=== PATIENT | male | born 1965 | race Two or more races ===

== ENCOUNTER 2018-12-21 09:28 | Emergency (ER) | payer OTHER ==
[2018-12-21] MEDS ORDERED: DIPHTH,PERTUSS(ACELL),TET 0.5 ML DISP.SYRIN IM ONE ×2 (09:58→10:11)
--- NOTE | 2018-12-21 10:01 | PDOC ---
History of Present Illness - General Chief Complaint: Injury Stated Complaint: LAC RIGHT THUMB Time Seen by Provider: 12/21/18 09:55 History Source: Patient - History of Present Illness Initial Comments: 12/21/18 09:56 Patient is a 53-year-old male who presents to the ER with a right thumb laceration sustained earlier this morning. Patient states he was working with a chop saw when it slipped and cut his right thumb. Patient does not remember the date of his last tetanus shot. Bleeding is controlled prior to arrival in the emergency department. Pt is L hand dominant. Past History - Travel Traveled outside of the country in the last 30 days: No Close contact w/someone who was outside of country & ill: No - Past Medical History Allergies/Adverse Reactions: Allergies Allergy/AdvReac Type Severity Reaction Status Date / Time No Known Allergies Allergy Verified 12/21/18 09:33 Home Medications: Ambulatory Orders NK [No Known Home Medication] 12/21/18 Anemia: Yes COPD: No - Immunization History Immunization Up to Date: No - Suicide/Smoking/Psychosocial Hx Smoking History: Never smoked Hx Alcohol Use: No Drug/Substance Use Hx: No Review of Systems - Review of Systems Able to Perform ROS?: Yes Comments:: 12/21/18 11:02 CONSTITUTIONAL: Absent: fever, chills, diaphoresis, generalized weakness, malaise, loss of appetite HEENT: Absent: rhinorrhea, nasal congestion, throat pain, throat swelling, difficulty swallowing, mouth swelling, ear pain, eye pain, visual Changes CARDIOVASCULAR: Absent: chest pain, loss of consciousness, palpitations, irregular heart rate, peripheral edema RESPIRATORY: Absent: cough, shortness of breath, dyspnea with exertion, orthopnea, wheezing, stridor, hemoptysis GASTROINTESTINAL: Absent: abdominal pain, abdominal distension, nausea, vomiting, diarrhea, constipation, melena, hematochezia GENITOURINARY: Absent: dysuria, frequency, urgency, hesitancy, hematuria, flank pain, genital pain MUSCULOSKELETAL: Absent: myalgia, arthralgia, joint swelling SKIN: Absent: rash, itching, pallor HEMATOLOGIC/IMMUNOLOGIC: Absent: easy bleeding, easy bruising, lymphadenopathy, frequent infections ENDOCRINE: Absent: unexplained weight gain, unexplained weight loss, heat intolerance, cold intolerance NEUROLOGIC: Absent: headache, focal weakness or paresthesias, dizziness, unsteady gait, seizure, mental status changes, bladder or bowel incontinence PSYCHIATRIC: Absent: anxiety, depression, suicidal or homicidal ideation, hallucinations. Is the patient limited Slovenian proficient: No *Physical Exam - Vital Signs Last Vital Signs Temp Pulse Resp BP Pulse Ox 97.8 F 70 16 136/87 100 12/21/18 09:34 12/21/18 09:34 12/21/18 09:34 12/21/18 09:34 12/21/18 09:34 Moderate Sedation - Procedure Monitoring Vital Signs: Procedure Monitoring Vital Signs Temperature 97.8 F 12/21/18 09:34 Pulse Rate 70 12/21/18 09:34 Respiratory Rate 16 12/21/18 09:34 Blood Pressure 136/87 12/21/18 09:34 O2 Sat by Pulse Oximetry (%) 100 12/21/18 09:34 *DC/Admit/Observation/Transfer Diagnosis at time of Disposition: Laceration - Discharge Dispostion Disposition: HOME Condition at time of disposition: Stable Decision to Admit order: No - Referrals Referrals: Angelito Tirado MD [Staff Physician] - - Patient Instructions Printed Discharge Instructions: DI for Laceration Repair -- Finger Additional Instructions: You had your cut fixed today with stitches. Please return in 7 days to have your stitches removed. Your tetanus shot was updated today. Avoid soaking the thumb. Keep it dry when showering. Please keep the area clean and pat dry. You may take Tylenol or Motrin as needed for pain. Return to the emergency department sooner if you have area of redness around the site, purulent drainage, fevers, or have any changes in your symptoms. Has arreglado tu jose francisco hoy con puntos de sutura. Por favor, vuelva en 7 rod para que le quiten los puntos. Tu vacuna contra el ttanos fue actualizada hoy. Evite empapar el pulgar. Mantngalo seco cuando se duche. Por favor, mantenga el dalton limpia y seca. Puede jolynn Tylenol o Motrin segn sea necesario para el dolor. Regrese al departamento de emergencias antes si tiene un dalton de enrojecimiento alrededor del sitio, drenaje purulento, fiebre o si tiene algn cambio en alok sntomas. - Post Discharge Activity Forms/Work/School Notes: Back to Work
[2018-12-21 10:13] VITALS: BP 136/87; PULSE 70; TEMP 97.8; BMI 25.0
== END 2018-12-21 11:18 | disposition home or self-care (01) ==
LOC: JERFT 09:28
PROC: 3E0234Z Introduction of Serum, Toxoid and Vaccine into Muscle, Percutaneous Approach (ICD-10-PCS; principal; 2018-12-21)
PROC: 0HQFXZZ Repair Right Hand Skin, External Approach (ICD-10-PCS; 2018-12-21)
DX: S61.011A Laceration without foreign body of right thumb without damage to nail, initial encounter (principal); W29.8XXA Contact with other powered hand tools and household machinery, initial encounter; Y93.89 Activity, other specified; Y92.89 Other specified places as the place of occurrence of the external cause; Y99.0 Civilian activity done for income or pay
CPT/HCPCS: 73130-TC-RT-FY; 90715; 99282-25

== ENCOUNTER 2018-12-28 13:20 | Emergency (ER) | payer OTHER ==
[2018-12-28 13:47] VITALS: BP 95/60; PULSE 72; TEMP 98; BMI 25.0
--- NOTE | 2018-12-28 13:51 | PDOC ---
Suture Removal/Wound Check HPI - History of Present Illness Chief Complaint: Suture/Staple Removal(Here) Stated Complaint: STITCH REMOVAL Time Seen by Provider: 12/28/18 13:49 History Source: Yes: Patient Exam Limitations: Yes: No Limitations Treated at: [facility] - Previous ED Treatment Type of procedure performed on last visit: Yes: Laceration Repair Tetanus Immunization: Yes: Up to Date, Given at last ED visit Antibiotics Prescribed: No Past History - Travel Traveled outside of the country in the last 30 days: No Close contact w/someone who was outside of country & ill: No - Past Medical History Allergies/Adverse Reactions: Allergies Allergy/AdvReac Type Severity Reaction Status Date / Time No Known Allergies Allergy Verified 12/28/18 14:15 Home Medications: Ambulatory Orders NK [No Known Home Medication] 12/21/18 Anemia: Yes COPD: No - Immunization History Immunization Up to Date: No - Suicide/Smoking/Psychosocial Hx Smoking History: Never smoked Hx Alcohol Use: No Drug/Substance Use Hx: No Suture Removal/Wound Check PE - Physical Exam Laceration/Wound Check Symptoms: reports: None, Improved Current Severity Level: None Location of Laceration/Wound: right: Finger (thumb, 6 simple interrupted sutures intact. Wound well approximated.) *Review of Systems - Review of Systems Able to Perform ROS?: Yes Constitutional: No: Chills, Fever, Weakness Integumentary: No: Bruising, Pruritus, Rash, Other (discharge) All Other Systems: Reviewed and Negative *Physical Exam - Vital Signs Last Vital Signs Temp Pulse Resp BP Pulse Ox 98.0 F 72 17 95/60 98 12/28/18 13:43 12/28/18 13:43 12/28/18 13:43 12/28/18 13:43 12/28/18 13:43 - Physical Exam General Appearance: Yes: Nourished, Appropriately Dressed. No: Apparent Distress Musculoskeletal: positive: Other (ROM of R thumb fully intact) Extremity: positive: Normal Capillary Refill, Normal Inspection, Normal Range of Motion Integumentary: positive: Normal Color, Dry, Warm, Other (6 simple interrupted sutures intact. wound well approximated. no signs of infeciton) Neurologic: positive: Fully Oriented, Alert, Normal Mood/Affect, Normal Response Moderate Sedation - Procedure Monitoring Vital Signs: Procedure Monitoring Vital Signs Temperature 98.0 F 12/28/18 13:43 Pulse Rate 72 12/28/18 13:43 Respiratory Rate 17 12/28/18 13:43 Blood Pressure 95/60 12/28/18 13:43 O2 Sat by Pulse Oximetry (%) 98 12/28/18 13:43 Medical Decision Making - Medical Decision Making 12/28/18 14:17 Patient is a 53-year-old male who presents for suture removal to the right thumb. Stitches placed by myself in our ED 7 days ago. Wound is well-healed and well approximated. Stitches removed at this time. Steri-Strips placed for additional support. Range of motion of the right thumb is fully intact. Discharge home I discussed the physical exam findings, ancillary test results and final diagnoses with the patient. I answered all of the patient's questions. The patient was satisfied with the care received and felt comfortable with the discharge plan and treatment plan. The Patient agrees to follow up with the primary care physician/specialist within 24-72 hours. Return precautions were given. *DC/Admit/Observation/Transfer Diagnosis at time of Disposition: Visit for suture removal - Discharge Dispostion Disposition: HOME Condition at time of disposition: Stable Decision to Admit order: No - Referrals Referrals: Aaron Waller MD [Staff Physician] - - Patient Instructions Printed Discharge Instructions: DI for Suture Removal Additional Instructions: You had your sutures/evelyn removed today. Please use bacitracin on the site for the next week. Avoid soaking the area with water for 1 more week as to what the wound fully heal. Follow-up with her primary care doctor as needed Return to the emergency department if you develop fevers, drainage from the site , increased pain, or have any changes in your symptoms. - Post Discharge Activity Forms/Work/School Notes: Back to Work
== END 2018-12-28 14:29 | disposition home or self-care (01) ==
LOC: JERFT 13:20
DX: Z48.02 Encounter for removal of sutures (principal)
CPT/HCPCS: 99281-25